=== PATIENT | male | born 1985 | race Caucasian/White ===

== ENCOUNTER 2018-08-17 19:57 | Emergency (ER) | payer SELFPAY ==
[~2018-08-17] VITALS: Ht 190.5 cm; Wt 75.8 kg
[2018-08-17 20:08] VITALS: BP 113/61
--- NOTE | 2018-08-17 21:12 | NUR ---
Emt at bedside for splint. Tbdc post splint.
== END 2018-08-17 21:29 | disposition home or self-care (01) ==
LOC: ED 21:20
DX: M65.4 Radial styloid tenosynovitis [de Quervain] (principal); M65.831 Other synovitis and tenosynovitis, right forearm; F17.200 Nicotine dependence, unspecified, uncomplicated
CPT/HCPCS: 29125; 99283